=== PATIENT | female | born 1945 | race Caucasian/White ===

== ENCOUNTER 2017-08-09 14:24 | Inpatient (IN) | payer OTHER ==
[~2017-08-09] VITALS: Ht 162.6 cm; Wt 59.0 kg
[~2017-08-09 14:24] MED LIST: ASPIR 8181 M1 PO; B COMPLEX1 EAC1 PO; FISH OIL 1,001000 M2 PO; GLUCOSAMINE HC500 MG PO; HRT PO; LEVOTHYROXIN0.125 M1 PO; LIALDA1.2 GM PO; PRILOSEC20 MG PO; VITAMIN D2000 UNIT PO
[2017-08-09 14:26] VITALS: BP 160/103
[2017-08-09] MEDS ORDERED: NORCO 5-325 TA1 EACH PO (14:35)
[2017-08-09] MEDS ORDERED: VALIUM5 MG PO (14:35)
[2017-08-09 16:35] LABS: ABSOLUTE NEUTROPHILS 5.8 thou/uL (1.4-8.2); BASOPHILS 0.7 % (0.0-2.0); EOSINOPHILS 2.3 % (0.0-3.0); HEMATOCRIT 38.1 % (37.0-47.0); LYMPHOCYTES 13.8 % (24.0-44.0); MCH 32.4 pg (26.0-34.0); MCHC 34.2 g/dL (28.0-37.0); MCV 94.8 fL (80.0-100.0); MONOCYTES 9.2 % (1.0-8.0); PLATELET COUNT 181 thou/uL (150-400); RBC 4.02 mil/uL (4.20-5.00); RDW 13.3 % (10.5-14.5); WBC 7.9 thou/uL (4.0-11.0)
[2017-08-09 16:42] LABS: CALCIUM 9.3 mg/dL (8.5-10.1); CREATININE 0.7 mg/dL (0.6-1.0); POTASSIUM 3.4 mmol/L (3.5-5.1)
[2017-08-09 17:51] VITALS: BP 146/89
[2017-08-09] MEDS ORDERED: VITAMINC500 PO (19:06)
[2017-08-09] MEDS ORDERED: CYCLOBENZAPRINE5 MG PO (19:08)
[2017-08-09] MEDS ORDERED: EFFEXOR XR37.5 MG PO (19:11)
[2017-08-09 19:48] VITALS: BP 147/77
[2017-08-10 07:34] VITALS: BP 117/72
[2017-08-10 19:55] VITALS: BP 136/72
[2017-08-11 08:28] VITALS: BP 140/85
[2017-08-11 20:14] VITALS: BP 141/73
[2017-08-12 08:14] VITALS: BP 131/74
[2017-08-12 19:51] VITALS: BP 144/82
[2017-08-13 07:30] VITALS: BP 91/55
[2017-08-13] MEDS ORDERED: CELEBREX 200 M200 M1 PO (10:14)
[2017-08-13] MEDS ORDERED: FLEXERIL PO (10:14)
[2017-08-13] MEDS ORDERED: PERCOCET 5-3251 EACH PO (10:14)
[2017-08-13 14:10] VITALS: BP 91/55
== END 2017-08-13 15:05 | disposition home or self-care (01) | DRG 562 ==
LOC: ER 14:24 → EROBS 16:04 → SICU 16:04 → ENTRNSPT 08-13 14:50 → EDTRNSPTSTS 08-13 14:53 → SICU 08-13 15:05
PROVIDERS: Emergency Medicine
DX: S39.012A Strain of muscle, fascia and tendon of lower back, initial encounter (principal); E43 Unspecified severe protein-calorie malnutrition; J45.909 Unspecified asthma, uncomplicated; E03.9 Hypothyroidism, unspecified; K21.9 Gastro-esophageal reflux disease without esophagitis; X58.XXXA Exposure to other specified factors, initial encounter; Z60.2 Problems related to living alone; K59.00 Constipation, unspecified; Z90.49 Acquired absence of other specified parts of digestive tract; Z79.899 Other long term (current) drug therapy; Z88.1 Allergy status to other antibiotic agents; Y93.89 Activity, other specified; Y92.89 Other specified places as the place of occurrence of the external cause; Y99.8 Other external cause status; Z68.22 Body mass index [BMI] 22.0-22.9, adult
CPT/HCPCS: 15000

== ENCOUNTER → 2019-04-02 | Outpatient (CLI) | payer OTHER ==
[~2019-04-02] MED LIST changes: +CELEBREX 200 M200 M1 PO; +CYCLOBENZAPRINE5 MG PO; +EFFEXOR XR37.5 MG PO; +FLEXERIL PO; +NORCO 5-325 TA1 EACH PO; +PERCOCET 5-3251 EACH PO; +VALIUM5 MG PO; +VITAMINC500 PO
== END ==
LOC: SJCVC 13:56
DX: I10 Essential (primary) hypertension (principal); K21.9 Gastro-esophageal reflux disease without esophagitis; F41.9 Anxiety disorder, unspecified; E03.9 Hypothyroidism, unspecified; Z90.49 Acquired absence of other specified parts of digestive tract; Z79.899 Other long term (current) drug therapy

== ENCOUNTER → 2019-04-06 | Outpatient (CLI) | payer OTHER | LOC: SJCVCIMAG 08:03 | DX: I10 Essential (primary) hypertension (principal) ==

== ENCOUNTER → 2019-04-08 | Outpatient (CLI) | payer OTHER | LOC: SJCVCIMAG 10:05 → NUC 13:23 → SJCVCIMAG 15:03 | DX: I08.3 Combined rheumatic disorders of mitral, aortic and tricuspid valves (principal); I11.9 Hypertensive heart disease without heart failure ==

== ENCOUNTER → 2019-04-10 | Outpatient (CLI) | payer OTHER | LOC: SJCVC 14:16 | DX: I42.0 Dilated cardiomyopathy (principal); I11.0 Hypertensive heart disease with heart failure; I50.20 Unspecified systolic (congestive) heart failure; Z79.899 Other long term (current) drug therapy; E03.9 Hypothyroidism, unspecified; Z90.49 Acquired absence of other specified parts of digestive tract ==

== ENCOUNTER → 2019-05-11 | Outpatient (CLI) | payer OTHER | LOC: SJCVC 13:50 → SJCVCIMAG 13:50 | DX: I51.7 Cardiomegaly (principal); I42.0 Dilated cardiomyopathy; I50.20 Unspecified systolic (congestive) heart failure; E78.5 Hyperlipidemia, unspecified; E03.9 Hypothyroidism, unspecified; F41.9 Anxiety disorder, unspecified; Z90.49 Acquired absence of other specified parts of digestive tract; Z79.899 Other long term (current) drug therapy ==

== ENCOUNTER → 2019-09-14 | Outpatient (CLI) | payer OTHER | LOC: SJCVC 13:13 | PROVIDERS: ATTEND Internal Medicine | DX: I42.9 Cardiomyopathy, unspecified (principal); I11.0 Hypertensive heart disease with heart failure; I50.20 Unspecified systolic (congestive) heart failure ==

== ENCOUNTER → 2019-12-30 | Outpatient (CLI) | payer OTHER | LOC: SJCVCIMAG 12:35 | PROVIDERS: ATTEND Internal Medicine | DX: I08.0 Rheumatic disorders of both mitral and aortic valves (principal); I42.9 Cardiomyopathy, unspecified; I50.20 Unspecified systolic (congestive) heart failure; E78.5 Hyperlipidemia, unspecified; Z79.82 Long term (current) use of aspirin; Z79.899 Other long term (current) drug therapy ==

== ENCOUNTER → 2020-06-30 | Outpatient (CLI) | payer OTHER | LOC: SJCVCIMAG 08:48 | PROVIDERS: ATTEND Internal Medicine | DX: I08.3 Combined rheumatic disorders of mitral, aortic and tricuspid valves (principal); R94.31 Abnormal electrocardiogram [ECG] [EKG]; I49.3 Ventricular premature depolarization; R07.9 Chest pain, unspecified; I42.9 Cardiomyopathy, unspecified; I11.0 Hypertensive heart disease with heart failure; I50.20 Unspecified systolic (congestive) heart failure; E78.5 Hyperlipidemia, unspecified; Z88.8 Allergy status to other drugs, medicaments and biological substances; E03.9 Hypothyroidism, unspecified; Z90.49 Acquired absence of other specified parts of digestive tract; Z79.82 Long term (current) use of aspirin; Z79.899 Other long term (current) drug therapy ==

== ENCOUNTER → 2020-07-12 | Outpatient (CLI) | payer OTHER | LOC: SJCVCIMAG 09:45 | PROVIDERS: ATTEND Internal Medicine | DX: I49.3 Ventricular premature depolarization (principal); R00.0 Tachycardia, unspecified; R06.00 Dyspnea, unspecified; R53.83 Other fatigue; E78.5 Hyperlipidemia, unspecified; I50.20 Unspecified systolic (congestive) heart failure; I42.0 Dilated cardiomyopathy; Z88.8 Allergy status to other drugs, medicaments and biological substances; Z79.82 Long term (current) use of aspirin; Z79.899 Other long term (current) drug therapy ==